=== PATIENT | male | born 1965 | race Two or more races ===

== ENCOUNTER 2020-04-20 08:42 | Inpatient (IN) | payer MEDICAID, SELFPAY ==
[~2020-04-20] VITALS: Ht 170.2 cm; Wt 60.2 kg
--- NOTE | 2020-04-20 09:21 | NUR ---
PT WITH MULTIPLE SYMPTOMS OF COVID. N/V, DRY COUGH, LOSS OF TASTE. PT WITH SYNCOPAL EPISODE YESTERDAY, DENIES HITTING HEAD. ADMITS TO HAVING DRANK VOLDKA YESTERDAY PRIOR TO SYNCOPAL EPISODE. PT STATES HE DRINKS A PINT OF VOLDKA/DAY. STATES HE HAS SHAKING WHEN HE GOES TOO LONG W/O A DRINK BUT HAS NEVER HAD A SEIZURE. ANUSHA ARROYO AT BEDSIDE. PT ASSESSMENT REV. AND ORDERS REC'D. PT ON ALL MONITORS, CALL LIGHT W/I REACH
--- NOTE | 2020-04-20 09:26 | NUR ---
RA SAT WHILE AT REST 90%, 2L NC PLACED WITH EFFECT
[2020-04-20] MEDS ORDERED: SODIUM CHLORIDE FLUSH 10ML SYR IVF ONE (10:00)
[2020-04-20] MEDS ORDERED: SODIUM CHLORIDE 0.9% 1,000ML IVBOLUS ONE ×2 (10:00→13:30)
[2020-04-20 10:11] LABS: BASOPHILS # (AUTO) 0.02 x10^3/uL (0-0.1); BASOPHILS % (AUTO) 1 % (0-1); EOSINOPHILS # (AUTO) 0.28 x10^3/uL (0-0.4); EOSINOPHILS % (AUTO) 6 % (1-7); LYMPHOCYTES # (AUTO) 1.46 x10^3/uL (1-3.4); LYMPHOCYTES % (AUTO) 29 % (22-44); MD NO; MEAN CORPUSCULAR HGB CONC 33.2 g/dL (33.2-36.2); MEAN PLATELET VOLUME 7.6 fL (7.4-10.4); MONOCYTES # (AUTO) 0.32 x10^3/uL (0.2-0.8); MONOCYTES % (AUTO) 7 % (2-9); NEUTROPHILS # (AUTO) 2.92 x10^3/uL (1.8-6.8); NEUTROPHILS % (AUTO) 58 % (42-75); PLATELET COUNT 243 x10^3/uL (130-400); RED BLOOD COUNT 4.45 x10^6/uL (4.38-5.82); RED CELL DISTRIBUTION WIDTH 13.5 % (9.4-14.8)
[2020-04-20 10:20] LABS: ALANINE AMINOTRANSFERASE 96 U/L (12-78); ALBUMIN 4.4 g/dL (3.4-5.0); ANION GAP 11 mmol/L (5-15); CHLORIDE 109 mmol/L (98-107); CREATININE 0.86 mg/dL (0.7-1.3)
[2020-04-20 10:24] LABS: ALKALINE PHOSPHATASE 90 U/L (45-117); BILIRUBIN,TOTAL 0.4 mg/dL (0.2-1.0); TOTAL PROTEIN 8.6 g/dL (6.4-8.2); TROPONIN I < 0.015 ng/mL (0.000-0.045)
[2020-04-20] MEDS ORDERED: LORazepam 2 MG/ML, 1ML ONE ×2 (10:43→12:09)
[2020-04-20] MEDS ORDERED: LORazepam 2 MG/ML, 1ML IVPush ONE (11:00)
--- NOTE | 2020-04-20 11:13 | NUR ---
PT RTD FROM RADIOLOGY, PIV ESTABLISHED, IVF INFUSING AND PT MED NOTED FOR HAND TREMMORS AND GEN SHAKYNESS. DR JIMENES AT BEDSIDE. TEST RESULTS REVIEWED, NEW ORDERS REC'D
--- NOTE | 2020-04-20 11:40 | NUR ---
PT TO CT WITH TECH TRANSPORT.
[2020-04-20] MEDS ORDERED: OMNIPAQUE 350 MG/ML, 100ML BOTTLE ONE (11:53)
--- NOTE | 2020-04-20 11:55 | NUR ---
PT RTD FROM CT. HAND TREMMORS IMPROVED. VSS
[2020-04-20] MEDS: LORazepam 2 MG/ML, 1ML IVPush PRN ×2 (12:10→13:25)
--- NOTE | 2020-04-20 12:12 | NUR ---
PT HR REMAINS RAPID FOLLOWING BOLUS, RESP [phone], DENIES SOB.
[2020-04-20] MEDS ORDERED: CEFTRIAXONE PMX 1GM/50ML 50 ML IV ONE (12:30)
[2020-04-20] MEDS ORDERED: AZITHROMYCIN 500 MG in SODIUM CHLORIDE 0.9% 250 ML IV ONE (12:30)
[2020-04-20] MEDS ORDERED: CEFTRIAXONE PMX 1GM/50ML 50 ML ONE (12:41)
--- NOTE | 2020-04-20 12:54 | NUR ---
PT OOB TO BEDSIDE COMMODE.
--- NOTE | 2020-04-20 13:02 | NUR ---
Tried to apply c-collar per order and RN stated that pt does not need it. Reset indicator for order
[2020-04-20] MEDS: SODIUM CHLORIDE 0.9% 1,000 ML IV SCH ×3 (13:06→15:32)
--- NOTE | 2020-04-20 13:07 | NUR ---
PT VOIDED W/O DIFFICULTY AND RTD TO BED. IVF INFUSING NOTED, CALL LIGHT W/I REACH.
--- NOTE | 2020-04-20 13:15 | NUR ---
PT CONTINUED ELEVATED HR AND BP DISCUSSED WITH DR JIMENES. PT IS CALM AND COOPERATIVE, NO HAND TREMMORS NOTED. ADDITIONAL ORDERS REC'.D
[2020-04-20] MEDS ORDERED: THIAMINE 100MG TABLET ONE (13:16)
[2020-04-20] MEDS ORDERED: methylPREDNISolone SOD SUCC 125 MG/2 ML ONE (13:16)
[2020-04-20 13:20] LABS: MICROSCOPIC NOT IND
[2020-04-20] MEDS ORDERED: THIAMINE 100MG TABLET PO ONE (13:30)
[2020-04-20] MEDS ORDERED: methylPREDNISolone SOD SUCC 125 MG/2 ML IVPush ONE (13:30)
[2020-04-20] MEDS ORDERED: LORazepam 2 MG/ML, 1ML IVPush PRN (13:30)
[2020-04-20 14:16] VITALS: BP 153/111
[2020-04-20] MEDS ORDERED: LORazepam 1MG TABLET PO PRN ×4 (14:30)
[2020-04-20] MEDS ORDERED: hydrALAzine 20 MG/ML, 1ML IVPush PRN (14:30)
[2020-04-20] MEDS ORDERED: ACETAMINOPHEN 325 MG TABLET PO PRN (14:30)
[2020-04-20] MEDS ORDERED: LORazepam 2 MG/ML, 1ML IV PRN ×5 (14:30)
[2020-04-20] MEDS ORDERED: LORazepam 0.5MG TABLET PO PRN (14:30)
[2020-04-20] MEDS ORDERED: THIAMINE 200 MG in DEXTROSE 5% 50 ML IVPB ONE (14:30)
[2020-04-20] MEDS ORDERED: FOLIC ACID 1 MG TABLET PO ONE (14:30)
[2020-04-20] MEDS ORDERED: LABETALOL 5MG/ML, 20ML IVPush PRN (14:30)
[2020-04-20] MEDS ORDERED: ENALAPRILAT 1.25 MG/ML, 2ML IVPush PRN (14:30)
[2020-04-20] MEDS ORDERED: ONDANSETRON 2MG/ML, 2ML IVPush PRN (14:30)
[2020-04-20] MEDS ORDERED: ONDANSETRON ODT 4 MG PO PRN (14:30)
[2020-04-20 15:00] VITALS: BP 149/111
[2020-04-20] MEDS: DEXAMETHASONE 4 MG TABLET PO SCH ×2 (15:33→20:58)
[2020-04-20] MEDS: POTASSIUM CHLORIDE 20 MEQ, MAGNESIUM SULFATE 2 GM, THIAMINE 200 MG, MVI ADULT 10 ML, FO... IV SCH (15:33)
[2020-04-20] MEDS: HEPARIN 5,000 UNITS/ML, 1ML SQ SCH ×2 (15:33→23:44)
[2020-04-20 17:25] LABS: SALICYLATE LEVEL 2.1 mg/dL (2.8-20.0)
[2020-04-20] MEDS: CEFEPIME 1 GM in DEXTROSE 5% 50 ML IV SCH (17:50)
[2020-04-20 19:25] VITALS: BP 173/110
[2020-04-20] MEDS: ALBUTEROL HFA 90 MCG/SPRAY INH SCH (19:59)
[2020-04-20 20:33] VITALS: BP 138/87
[2020-04-21] VITALS: BP 159/68
[2020-04-21] MEDS: CEFEPIME 1 GM in DEXTROSE 5% 50 ML IV SCH (02:04)
[2020-04-21] MEDS: DEXAMETHASONE 4 MG TABLET PO SCH ×4 (02:04→21:20)
[2020-04-21 03:03] VITALS: BP 158/95
[2020-04-21 05:56] LABS: BASOPHILS # (AUTO) 0.01 x10^3/uL (0-0.1); BASOPHILS % (AUTO) 0 % (0-1); EOSINOPHILS % (AUTO) 0 % (1-7); LYMPHOCYTES # (AUTO) 0.56 x10^3/uL (1-3.4); LYMPHOCYTES % (AUTO) 12 % (22-44); MD NO; MEAN CORPUSCULAR HEMOGLOBIN 33.5 pg (27.5-34.5); MEAN CORPUSCULAR HGB CONC 32.8 g/dL (33.2-36.2); MEAN PLATELET VOLUME 8.1 fL (7.4-10.4); MONOCYTES # (AUTO) 0.04 x10^3/uL (0.2-0.8); MONOCYTES % (AUTO) 1 % (2-9); NEUTROPHILS # (AUTO) 4.04 x10^3/uL (1.8-6.8); NEUTROPHILS % (AUTO) 87 % (42-75); PLATELET COUNT 214 x10^3/uL (130-400); RED BLOOD COUNT 4.13 x10^6/uL (4.38-5.82); RED CELL DISTRIBUTION WIDTH 13.8 % (9.4-14.8)
[2020-04-21 06:06] LABS: CHLORIDE 104 mmol/L (98-107)
[2020-04-21 06:18] LABS: ALANINE AMINOTRANSFERASE 71 U/L (12-78); ALBUMIN 3.8 g/dL (3.4-5.0); ALKALINE PHOSPHATASE 79 U/L (45-117); ANION GAP 12 mmol/L (5-15); BILIRUBIN,TOTAL 0.8 mg/dL (0.2-1.0); CALCIUM 8.7 mg/dL (8.5-10.1); CREATININE 0.76 mg/dL (0.7-1.3); TOTAL PROTEIN 7.9 g/dL (6.4-8.2)
[2020-04-21 07:11] VITALS: BP 158/89
[2020-04-21] MEDS: ALBUTEROL HFA 90 MCG/SPRAY INH SCH ×4 (07:17→19:33)
[2020-04-21] MEDS: HEPARIN 5,000 UNITS/ML, 1ML SQ SCH ×3 (08:13→23:07)
[2020-04-21] MEDS: AZITHROMYCIN 250 MG TABLET PO SCH (08:13)
[2020-04-21] MEDS ORDERED: MULTIVITAMINS/MINERALS TABLET PO SCH (09:00)
[2020-04-21] MEDS: CLINDAMYCIN PMX 600MG/50ML 50 ML IV SCH ×3 (09:34→21:20)
[2020-04-21 13:45] VITALS: BP 160/90
[2020-04-21] MEDS: POTASSIUM CHLORIDE 20 MEQ, MAGNESIUM SULFATE 2 GM, THIAMINE 200 MG, MVI ADULT 10 ML, FO... IV SCH (15:53)
[2020-04-21 19:43] VITALS: BP 161/88
[2020-04-22 01:04] VITALS: BP 150/93
[2020-04-22] MEDS: CLINDAMYCIN PMX 600MG/50ML 50 ML IV SCH ×3 (03:05→14:08)
[2020-04-22] MEDS: DEXAMETHASONE 4 MG TABLET PO SCH ×3 (03:05→15:09)
[2020-04-22 06:55] VITALS: BP 154/99
[2020-04-22] MEDS: ALBUTEROL HFA 90 MCG/SPRAY INH SCH ×3 (07:03→14:09)
[2020-04-22] MEDS: HEPARIN 5,000 UNITS/ML, 1ML SQ SCH ×2 (08:03→15:10)
[2020-04-22] MEDS: AZITHROMYCIN 250 MG TABLET PO SCH (08:04)
[2020-04-22] MEDS ORDERED: THIAMINE 100 MG in DEXTROSE 5% 50 ML IVPB SCH (09:00)
[2020-04-22 13:27] VITALS: BP 146/88
[2020-04-22] MEDS ORDERED: AZIT250T89 PO (13:46)
[2020-04-22] MEDS ORDERED: MULT-449 PO (13:46)
[2020-04-22] MEDS ORDERED: CLIN300C8 PO (13:46)
[2020-04-22] MEDS ORDERED: PRED20TA PO (13:53)
[2020-04-22] MEDS ORDERED: POTASSIUM CHLORIDE 20 MEQ, MAGNESIUM SULFATE 2 GM, THIAMINE 200 MG, MVI ADULT 10 ML, FO... IV SCH (15:00)
== END 2020-04-22 16:55 | disposition home or self-care (01) | DRG 871 ==
LOC: ED 09:02 → EDIP 13:07 → 4EST 14:00 → 4WST 04-22 14:07
PROVIDERS: ADMIT Internal Medicine; ATTEND Internal Medicine
DX: A41.9 Sepsis, unspecified organism (principal); J96.01 Acute respiratory failure with hypoxia; J15.9 Unspecified bacterial pneumonia; J69.0 Pneumonitis due to inhalation of food and vomit; S02.0XXA Fracture of vault of skull, initial encounter for closed fracture; J44.0 Chronic obstructive pulmonary disease with (acute) lower respiratory infection; J44.1 Chronic obstructive pulmonary disease with (acute) exacerbation; F10.239 Alcohol dependence with withdrawal, unspecified; E78.5 Hyperlipidemia, unspecified; Z20.828 Contact with and (suspected) exposure to other viral communicable diseases; Y90.5 Blood alcohol level of 100-119 mg/100 ml; S30.0XXA Contusion of lower back and pelvis, initial encounter; S16.1XXA Strain of muscle, fascia and tendon at neck level, initial encounter; X58.XXXA Exposure to other specified factors, initial encounter; Y93.89 Activity, other specified; Y92.89 Other specified places as the place of occurrence of the external cause; Y99.8 Other external cause status; K70.9 Alcoholic liver disease, unspecified; I10 Essential (primary) hypertension; F10.229 Alcohol dependence with intoxication, unspecified; D75.89 Other specified diseases of blood and blood-forming organs; Z79.899 Other long term (current) drug therapy
CPT/HCPCS: 36415; 36600; 72110; 96360; 99285; J7042; 70450; 71045; 71275; 72125; 80053; 80307; 81003; 82803; 83605; 83735; 84484; 85025; 87040; 87635; 93005; 93306; 94640; 94664; G0378; J0456; J0692; J0696; J1644; J3411; J3475; J3480; Q9967; J2060; J2930; J7030; J7050

== ENCOUNTER 2020-05-26 12:32 | Emergency (ER) | payer MEDICAID ==
[~2020-05-26] VITALS: Ht 172.7 cm; Wt 58.9 kg
[~2020-05-26 12:32] MED LIST: AZIT250T89 PO; CLIN300C8 PO; MULT-449 PO; PRED20TA PO
[2020-05-26] MEDS ORDERED: SODIUM CHLORIDE FLUSH 10ML SYR IVF ONE (13:00)
--- NOTE | 2020-05-26 13:07 | NUR ---
PATIENT TO ROOM AT THIS TIME
[2020-05-26 13:14] LABS: BASOPHILS % (AUTO) 1 % (0-1); EOSINOPHILS % (AUTO) 10 % (1-7); LYMPHOCYTES % (AUTO) 26 % (22-44); MEAN CORPUSCULAR HEMOGLOBIN 34.3 pg (27.5-34.5); MEAN CORPUSCULAR HGB CONC 33.5 g/dL (33.2-36.2); MEAN PLATELET VOLUME 7.6 fL (7.4-10.4); MONOCYTES % (AUTO) 7 % (2-9); NEUTROPHILS % (AUTO) 56 % (42-75); PLATELET COUNT 278 x10^3/uL (130-400); RED BLOOD COUNT 4.69 x10^6/uL (4.38-5.82); RED CELL DISTRIBUTION WIDTH 13.7 % (9.4-14.8)
[2020-05-26 13:15] LABS: ALANINE AMINOTRANSFERASE 74 U/L (12-78); ALBUMIN 4.6 g/dL (3.4-5.0); ANION GAP 12 mmol/L (5-15); CALCIUM 9.5 mg/dL (8.5-10.1); CHLORIDE 105 mmol/L (98-107)
[2020-05-26 13:19] LABS: ALKALINE PHOSPHATASE 111 U/L (45-117); BILIRUBIN,TOTAL 0.8 mg/dL (0.2-1.0); CREATININE 0.93 mg/dL (0.7-1.3); TROPONIN I < 0.015 ng/mL (0.000-0.045)
[2020-05-26 13:31] VITALS: BP 150/104
[2020-05-26 13:45] LABS: MD SCAN
--- NOTE | 2020-05-26 14:00 | NUR ---
REPORT FROM BRII BERNAL. PT CARE RESPONSIBILITIES ASSUMED.
[2020-05-26] MEDS ORDERED: LORazepam 2 MG/ML, 1ML IV ONE (14:30)
[2020-05-26] MEDS ORDERED: SODIUM CHLORIDE 0.9%, 500ML IVBOLUS ONE (14:30)
[2020-05-26] MEDS ORDERED: LORazepam 2 MG/ML, 1ML ONE (14:37)
[2020-05-26] MEDS ORDERED: ALBUTEROL SULFATE 2.5 MG/3 ML ONE (14:49)
[2020-05-26 14:51] LABS: ACETONE, SERUM Negative (Negative)
[2020-05-26] MEDS ORDERED: ALBUTEROL SULFATE 2.5 MG/3 ML NPPB ONE (15:00)
--- NOTE | 2020-05-26 15:29 | NUR ---
DISCHARGE INSTRUCTIONS REVIEWED
== END 2020-05-26 15:31 | disposition home or self-care (01) ==
LOC: ED 12:59
DX: J20.9 Acute bronchitis, unspecified (principal); F10.239 Alcohol dependence with withdrawal, unspecified; I10 Essential (primary) hypertension; J44.9 Chronic obstructive pulmonary disease, unspecified; E78.5 Hyperlipidemia, unspecified; Y90.9 Presence of alcohol in blood, level not specified
CPT/HCPCS: 36415; 71045; 80053; 82010; 83605; 83735; 84484; 85025; 87040; 93005; 94640; 96361; 96374; 99285; J2060; J7040; J7613

== ENCOUNTER 2021-01-15 06:25 | Emergency (ER) | payer MEDICAID ==
[~2021-01-15] VITALS: Ht 170.2 cm; Wt 59.5 kg
[~2021-01-15 06:25] MED LIST changes: +ALBU18HF INH; +ALBUTEROL INHALER; +ANXIETY MED PO; +AZIT250T PO; -CLIN300C8 PO; +CLIN300C9 PO; +FLUT1AER INH; +LOSA50TA14 PO; +MONT10TA17 PO; +TIOT4MIS2 INH; +VENTOLIN INHALER
--- NOTE | 2021-01-15 06:32 | NUR ---
EKG IN TRIAGE
[2021-01-15] MEDS ORDERED: ALBUTEROL/IPRATROPIUM 2.5MG/0.5MG, 3 ML ONE (06:36)
[2021-01-15] MEDS ORDERED: methylPREDNISolone SOD SUCC 125 MG/2 ML ONE (06:41)
[2021-01-15] MEDS ORDERED: MAGNESIUM SULFATE PMX 2GM/50ML 50 ML IVPB ONE (07:00)
[2021-01-15] MEDS ORDERED: ALBUTEROL/IPRATROPIUM 2.5MG/0.5MG, 3 ML NPPB ONE (07:00)
[2021-01-15] MEDS ORDERED: methylPREDNISolone SOD SUCC 125 MG/2 ML IV ONE (07:00)
[2021-01-15] MEDS ORDERED: SODIUM CHLORIDE 0.9% 1,000 ML IV ONE (07:00)
[2021-01-15] MEDS ORDERED: SODIUM CHLORIDE FLUSH 10ML SYR IVF ONE (07:00)
--- NOTE | 2021-01-15 07:01 | NUR ---
Report to BRII bazan
[2021-01-15 07:06] LABS: BASOPHILS % (AUTO) 1 % (0-1); EOSINOPHILS % (AUTO) 16 % (1-7); LYMPHOCYTES % (AUTO) 36 % (22-44); MEAN CORPUSCULAR HEMOGLOBIN 35.4 pg (27.5-34.5); MEAN CORPUSCULAR HGB CONC 34.6 g/dL (33.2-36.2); MEAN PLATELET VOLUME 7.7 fL (7.4-10.4); MONOCYTES % (AUTO) 10 % (2-9); NEUTROPHILS % (AUTO) 37 % (42-75); PLATELET COUNT 216 x10^3/uL (130-400); RED BLOOD COUNT 4.06 x10^6/uL (4.38-5.82); RED CELL DISTRIBUTION WIDTH 14.6 % (9.4-14.8)
[2021-01-15 07:15] LABS: ALBUMIN 4.5 g/dL (3.4-5.0); ANION GAP 12 mmol/L (5-15); CALCIUM 8.9 mg/dL (8.5-10.1); CHLORIDE 99 mmol/L (98-107); CREATININE 0.77 mg/dL (0.7-1.3)
--- NOTE | 2021-01-15 07:18 | NUR ---
PROVIDER AT BEDSIDE TO DO EVALUATION ON PT.
--- NOTE | 2021-01-15 07:47 | NUR ---
PT STATES THAT HE IS FEELING MUCH BETTER AFTER THE BREATHING TREATMENT AND IS ABLE TO BREATH BETTER. EXPIRARTORY WHEEZES HEARD.
[2021-01-15] MEDS ORDERED: MAGNESIUM SULFATE PMX 2GM/50ML 50 ML ONE (07:57)
[2021-01-15] MEDS ORDERED: ALBUTEROL SULFATE 2.5 MG/3 ML NPPB ONE (08:30)
[2021-01-15] MEDS ORDERED: ALBUTEROL SULFATE 2.5 MG/3 ML ONE (08:34)
[2021-01-15 10:11] VITALS: BP 90/61
--- NOTE | 2021-01-15 10:47 | NUR ---
PT STATES FEEL MUCH BETTER AFTER TREATMENTS. Patient/Caregiver given discharge instructions and they have confirmed that they understand the instructions. Patient ambulatory with steady gait.
== END 2021-01-15 10:49 | disposition home or self-care (01) ==
LOC: ED 08:57
DX: J96.01 Acute respiratory failure with hypoxia (principal); J45.902 Unspecified asthma with status asthmaticus; R00.0 Tachycardia, unspecified; I10 Essential (primary) hypertension; J43.9 Emphysema, unspecified
CPT/HCPCS: 36415; 71045; 80048; 82040; 85025; 93005; 94640; 96365; 96366; 96375; 99291; J2930; J3475; J7030; J7512; J7613